=== PATIENT | male | born 1995 | race Asian ===

== ENCOUNTER 2023-10-22 12:23 | Emergency (ER) | payer OTHER, SELFPAY ==
[2023-10-22 13:07] VITALS: BP 151/75; PULSE 62; RESP 18; TEMP 36.5; O2SAT 100; BMI 39.7
--- NOTE | 2023-10-22 14:09 | ED_ITS ---
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 States unsure if blade had blood on it however did draw blood himself. Vaccinations unknown. Wash area immediately. Denies injury to other area, numbness/tingling, weakness Related Data Allergies Allergy/AdvReac Type Severity Reaction Status Date / Time No Known Allergies Allergy Verified 10/22/23 13:06 Review of Systems 2 Review of Systems: Constitutional: No Fever, No Chills Cardiovascular: No Chest Pain, No SOB Respiratory: No Cough, No Sputum Gastrointestinal: No Nausea, No Vomiting, No Diarrhea, No Constipation, No Abdominal pain Musculoskeletal: No joint pain, No Myalgias, No Joint Swelling Skin: +skin Lesions, No rash Neuro: No Weakness, No Numbness, No Paresthesias Yes all other systems are reviewed and are negative Constitutional: Constitutional: Reports as per [facility] Past Medical History Attestation statement: The following information was validated with the patient. Source: old records reviewed Social History Social History Advance Directives: No Physical Exam ED Vital Signs: Vital Signs - 24 hr 10/22/23 13:07 10/22/23 16:14 Temperature 97.7 F 99.1 F Pulse Rate 62 66 Respiratory Rate 18 16 Blood Pressure 151/75 H 136/75 Pulse Oximetry 100 100 Oxygen Delivery Method Room Air Room Air BMI result Body Mass Index 39.7 Const General: cooperative, healthy appearing and no acute distress Orientation/consciousness: patient oriented x3 Limitations: no limitations HENMT Head: Yes normal to inspection and Yes atraumatic Ears: hearing grossly normal bilaterally General nose exam: Normal external nose present Face and sinus: Yes normal facial exam Eyes General: appearance normal, both eyes and all related structures EOM: EOMs intact bilaterally Neck Neck: Yes normal visual inspection and Yes no meningeal signs Resp Effort & Inspection: normal respiratory effort and no respiratory distress Auscultation: clear to auscultation bilaterally Cardio Rate: regular rate Heart sounds: S1 normal heart sound present and S2 normal heart sound present Skin Other: Superficial cuts noted to volar aspect of left 2nd digit. No appreciable bleeding. Full range of motion intact. No active drainage Rashes: no rashes Neuro General: patient oriented x3, tone normal and no meningeal signs Cranial nerves: Yes CN's II-XII intact bilaterally Gait exam (Neuro): Normal gait present Extrem General: Yes normal to inspection Course Course Course Narrative: This is an RME: Additional HPI, ROS, PE not included below will be deferred to primary provider. This is a 28-year-old male presenting to the emergency department after being poked by a dirty blade at work. He works with specimens, in the blade used to cut specimens cut his left 2nd finger. On arrival, vital signs within normal limits. He cleansed the area Plan: Basic labs, transmission for any blood borne pathogens very low, discussed with patient, will obtain basic labs for baseline. -labs reassuring Results discussed with patient including worrisome signs and symptoms and strict return precautions, and when to return to the emergency department. They verbalized understanding and feel safe for discharge at this time. 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 On exam vital signs stable, NAD, nontoxic appearing, physical exam as noted above. Concern for bodily fluid exposure. Patient unsure about vaccination status. Patient agreeable to PEP kit. Encouraged close follow-up with work connection/infectious disease for remaining doses of antiviral medication Please refer to course for remaining clinical decision making, interpretation of labs/imaging results, and discussions with consultants and/or family members. Results discussed with patient including worrisome signs and symptoms and strict return precautions, and when to return to the emergency department. They verbalized understanding and feel safe for discharge at this time. Differential Diagnosis Differential Diagnoses: The differential diagnosis associated with the presentation includes As above Lab Data [facility] Lab Attestation statement: I reviewed the patient's lab results. 10/22/23 14:42 10/22/23 14:42 Labs: Lab Results 10/22/23 Range/Units 14:42 WBC 10.3 (4.8-10.8) X10*3/uL RBC 7.07 H (4.60-5.80) X10*6/uL Hgb 13.6 L (14.0-18.0) g/dl Hct 44.4 (42.0-52.0) % MCV 62.8 L (80.0-98.0) fL MCH 19.2 L (27.0-33.0) pg MCHC 30.6 L (31.0-36.0) g/dl RDW 17.8 H (11.0-16.0) % Plt Count 301 (160-400) X10*3/uL MPV 9.8 (9.4-12.4) fL Immature Gran % (Auto) 0.4 (0.0-0.4) % Neut % (Auto) 60.7 (45-73) % Lymph % (Auto) 30.8 (20-40) % Cottle % (Auto) 6.0 (2-11) % Eos % (Auto) 1.7 (0-4) % Baso % (Auto) 0.4 (0-2) % Lymph # (Auto) 3.2 (1.2-4.9) X10*3/uL Cottle # (Auto) 0.6 (0.1-1.2) X10*3/uL Eos # (Auto) 0.2 (0.0-0.4) X10*3/uL Baso # (Auto) 0.0 (0.0-0.2) X10*3/uL Abs Immat Gran (auto) 0.04 H (0.00-0.03) X10*3/uL Absolute Neuts (auto) 6.2 (2.0-8.3) x10*3/uL Absolute Nucleated RBC 0.000 (0.0-0.012) X10*3/uL Nucleated RBC % (auto) 0.0 (0.0-0.2) /100WBC Sodium 138 (135-145) mmol/L Potassium 3.9 (3.3-5.1) mmol/L Chloride 105 (96-108) mmol/L Carbon Dioxide 24 (22-29) mmol/L Anion Gap 13 (12-20) BUN 12 (9-16) mg/dL Creatinine 0.87 (0.5-1.4) mg/dL Estim Creat Clear Calc 155.1 Estimated GFR > 60 Random Glucose 90 (60-115) mg/dL Calcium 9.9 (8.4-10.2) mg/dL Total Bilirubin 0.6 (0.0-1.0) mg/dL Direct Bilirubin 0.2 (0.0-0.5) mg/dL AST 25 (5-37) U/L ALT 51 H (0-40) U/L Alkaline Phosphatase 55 (39-117) U/L Total Protein 8.1 H (6.5-8.0) g/dL Albumin 4.7 (3.5-5.0) g/dL Amylase 39 (28-100) U/L Lipase 16 (8-78) U/L External Record Review External record reviewed: Inpatient record, Office record, Outpatient record, Prior outpatient labs, Prior outpatient radiology, Primary care record and Outside ED record Tests considered The following testing was considered but not selected: As above Prescription Management I considered prescription management with: Pain Medication, Antiviral and Antibiotic Discharge Plan Discharge Clinical Impression: Accidental hypodermic needlestick injury Patient Disposition: Home, Self-Care Instructions: Needle Stick Injuries (ED) Additional Instructions: Please follow-up with were connection and Infectious Disease for the remaining doses of your antiviral medication If the area begins look infected, is redder there is pus drainage return to the emergency department your tetanus was updated today Referrals: [facility] [place] Group] [facility] [Outside]
[2023-10-22 14:46] LABS: MANUAL DIFF FLAG NO
[2023-10-22 14:47] LABS: Basophils Percent Auto 0.4 % (0-2); Eosinophils Absolute Auto 0.2 X10*3/uL (0.0-0.4); Eosinophils Percent Auto 1.7 % (0-4); Hematocrit 44.4 % (42.0-52.0); Hemoglobin 13.6 g/dl (14.0-18.0); Imm Gran Abs Auto 0.04 X10*3/uL (0.00-0.03); Imm Gran Pct Auto 0.4 % (0.0-0.4); Lymphocytes Absolute Auto 3.2 X10*3/uL (1.2-4.9); Lymphocytes Percent Auto 30.8 % (20-40); Mean Corpuscular HGB Conc 30.6 g/dl (31.0-36.0); Mean Corpuscular Hemoglobin 19.2 pg (27.0-33.0); Mean Platelet Volume 9.8 fL (9.4-12.4); Monocytes Absolute Auto 0.6 X10*3/uL (0.1-1.2); Neutrophils Absolute Auto 6.2 x10*3/uL (2.0-8.3); Neutrophils Percent Auto 60.7 % (45-73); Platelet Count 301 X10*3/uL (160-400); Red Blood Count 7.07 X10*6/uL (4.60-5.80); Red Cell Distribution Width 17.8 % (11.0-16.0); White Blood Count 10.3 X10*3/uL (4.8-10.8)
[2023-10-22 14:48] LABS: Mean Corpuscular Volume 62.8 fL (80.0-98.0)
[2023-10-22 15:02] LABS: Amylase 39 U/L (28-100)
[2023-10-22 15:09] LABS: Alanine Aminotransferase 51 U/L (0-40); Albumin Level 4.7 g/dL (3.5-5.0); Alkaline Phosphatase 55 U/L (39-117); Anion Gap 13 (12-20); Aspartate Amino Transferase 25 U/L (5-37); Bilirubin Direct 0.2 mg/dL (0.0-0.5); Bilirubin Total 0.6 mg/dL (0.0-1.0); Blood Urea Nitrogen 12 mg/dL (9-16); Calcium 9.9 mg/dL (8.4-10.2); Carbon Dioxide 24 mmol/L (22-29); Chloride 105 mmol/L (96-108); Creatinine Clr Calc Pharmacy 155.1; Estimated Glomerular Filt Rate > 60; Glucose Random 90 mg/dL (60-115); Lipase 16 U/L (8-78); Potassium 3.9 mmol/L (3.3-5.1); Sodium 138 mmol/L (135-145); Total Protein 8.1 g/dL (6.5-8.0)
[2023-10-22 16:14] VITALS: BP 136/75; PULSE 66; RESP 16; TEMP 37.3; O2SAT 100
[2023-10-22] MEDS: Post Exposure Medication Kit 1 KIT PO (17:10)
[2023-10-22] MEDS: Diphth,Pertus(ACell),Tet Adult 0.5 ML SYRINGE IM (17:26)
[2023-10-23 07:56] LABS: HBS Num1 180.02 mIU/mL (0-7.99); HBsAGNum1 0.75 S/CO (0.00-0.99); HIV AB/AG Nonreactive (Nonreactive); HIV Num 1 0.07 S/CO (0.00-0.99); Hepatitis B Surface Antigen Negative (Negative); ~Hepatitis B Surface Antibody REACTIVE (Nonreactive)
[2023-10-23 08:18] LABS: HBc Num1 0.14 S/CO (0.00-0.79); Hepatitis B Core Antibody Nonreactive (Nonreactive); ~HepC Num1 0.11 S/CO (0.00-0.79); ~Hepatitis C Antibody Nonreactive (Nonreactive)
== END 2023-10-22 17:31 | disposition home or self-care (01) ==
PROVIDERS: Physician Assistant Medical; Emergency Provider Emergency Medicine
DX: Z77.21 Contact with and (suspected) exposure to potentially hazardous body fluids (principal); S61.211A Laceration without foreign body of left index finger without damage to nail, initial encounter; W45.8XXA Other foreign body or object entering through skin, initial encounter; Y93.89 Activity, other specified; Y92.238 Other place in hospital as the place of occurrence of the external cause; Y99.0 Civilian activity done for income or pay; Z23 Encounter for immunization
CPT/HCPCS: 36415; 80048; 80076; 82150; 83690; 85025; 86704; 86706; 86803; 87340; 87389; 90471; 90715; 99284

== ENCOUNTER 2023-10-26 13:48 | Outpatient (AMB) | payer OTHER, SELFPAY ==
--- NOTE | 2023-10-26 13:39 | MHC.OFFVIS ---
Intake Vital Signs 10/26/23 14:02 Height 5 ft 8 in Weight 266 lb BMI 40.4 Pulse 93 Pulse Source Pulse Oximeter Pulse Oximetry (%) 99 Oxygen Delivery Method Room Air Intake Visit Reasons: Ref.[facility],Needle stick injuries Allergies No Known Allergies Allergy (Verified 10/26/23 14:03) HPI Ref.[facility] [place] HPI Details He cut hand on lab equipment. It had been cleaned. He is HIV and Hepatitis C negative. [facility] Medical History (Updated 10/29/23 @ 16:11 by Breanna Momin MD) Exposure to blood-borne pathogen Review of Systems Const All systems reviewed & are unremarkable except as noted in HPI and below Physical Exam Vital Signs: Last Vital Signs Pulse 93 10/26/23 14:02 Pulse Ox 99 10/26/23 14:02 Oxygen Delivery Method Room Air 10/26/23 14:02 BMI result Body Mass Index 40.4 Const General: cooperative HEENT Head: Yes normal to inspection Face and sinus: Yes normal facial exam Mouth: Normal oral and palatal mucosa present Teeth and gingiva: dentition normal Eyes General: appearance normal, both eyes and all related structures Pupils: Equal, round and reactive pupils present Resp Effort & Inspection: normal respiratory effort Cardio Rate: regular rate Rhythm: regular rhythm GI Palpation (GI): Soft to palpation and nontender General: Yes no CVA tenderness Back/Spine/Pelvis Back: no CVA tenderness Skin General skin exam: no rashes or lesions noted Neuro General: moves all extremities Cranial nerves: Yes Equal, round and reactive pupils present Extrem General: Yes normal to inspection Psych Appearance: grossly normal Assessment & Plan Assessment & Plan (1) Exposure to blood-borne pathogen: Comment: He has no further exposure concerns. He was given post exposure raltegravir and tenofovir in ER. May stop at this time per patient request. Check HIV and Hepatitis C six weeks, 3 months ,6 months. Code(s): Z77.21 - Contact with and (suspected) exposure to potentially hazardous body fluids Plan: n/a Coding Level of Care Code New Pt Level 3 (08214) Diagnoses Exposure to blood-borne pathogen Z77.21
[2023-10-26 14:02] VITALS: PULSE 93; O2SAT 99; BMI 40.4
== END 2023-10-26 14:31 | disposition home or self-care (01) ==
PROVIDERS: Visit Provider Internal Medicine
DX: Z77.21 Contact with and (suspected) exposure to potentially hazardous body fluids (principal)
CPT/HCPCS: 99203

== ENCOUNTER → 2023-10-26 13:48 | Outpatient (BNVA) | payer OTHER, SELFPAY | PROVIDERS: Visit Provider Internal Medicine ==